=== PATIENT | male | born 1990 | race Caucasian/White ===

== ENCOUNTER 2017-02-10 18:31 | Emergency (ER) | payer OTHER ==
--- NOTE | 2017-02-10 19:34 | RAD ---
PA AND LATERAL CHEST: Indication: Hemoptysis. Comparison: None. FINDINGS: There is airspace opacity within the right upper lobe suspicious for pneumonia. The right lung is jenise ar. Cardiomediastinal silhouette is within normal limits. No acute osseous abnormality is evident. IMPRESSION: Findings suspicious for left lower lobe pneumonia. Radiographic follow up to resolution is recommende d. POS: ANEUDY
== END 2017-02-10 19:35 | disposition home or self-care (01) ==
LOC: SCSER 18:31
DX: J18.9 Pneumonia, unspecified organism (principal); J45.909 Unspecified asthma, uncomplicated
CPT/HCPCS: 71046

== ENCOUNTER 2017-02-11 18:28 | Emergency (ER) | payer OTHER ==
[2017-02-11] MEDS ORDERED: Oxymetazoline HCl 0.05% ( 15 ML ) ONE (19:06)
[2017-02-11 19:20] LABS: INR-International Normal Ratio 1.1; PTT 28.3 SEC (22.9-36.1); Prothrombin Time 14.5 SEC (12.0-14.7)
[2017-02-11 19:23] LABS: #Basophils 0.1 thou/uL (0.0-0.2); #Eosinphils 0.1 thou/uL (0.0-0.7); #Lymphocytes 1.5 thou/uL (1.20-3.40); #Monocytes 0.7 thou/uL (0.11-0.59); #Neutrophils 9.2 thou/uL (1.40-6.50); %Basophils 0.5 % (0.0-1.0); %Eosinophils 1.1 % (0.0-10.0); %Lymphocytes 13.2 % (21.0-51.0); %Monocytes 5.9 % (0.0-10.0); %Neutrophils 79.3 % (42.0-75.0); Hemoglobin 15.7 g/dL (14.0-18.0); Mean Corpuscular Hemoglobin 28.3 pg (27.0-31.0); Mean Corpuscular Volume 83.2 fl (80.0-94.0); Mean Platelet Volume 6.5 fL (7.4-10.4); Platelet Count 267 thou/uL (130-400); Red Blood Cell (RBC) Count 5.53 mill/uL (4.70-6.10); White Blood Cell (WBC) Count 11.6 thou/uL (4.8-10.8)
== END 2017-02-11 19:44 | disposition home or self-care (01) ==
LOC: SCSER 18:28
DX: J34.89 Other specified disorders of nose and nasal sinuses (principal); J45.909 Unspecified asthma, uncomplicated; Z79.899 Other long term (current) drug therapy
CPT/HCPCS: 85025; 85610; 85730; 99284